=== PATIENT | female | born 1935 | race African-American/Black ===

== ENCOUNTER 2019-06-29 12:41 | Outpatient (CLI) | payer MEDICARE ==
--- NOTE | 2019-06-29 13:27 | Cat Scan Report ---
CT CHEST WITHOUT CONTRAST INDICATION / CLINICAL INFORMATION: J84.9 INTERSTITIAL PULMONARY DISEASE/R06.02 SHORTNESS OF BREATH. TECHNIQUE: Axial CT images were obtained through the chest without contrast. Sagittal and coronal reformatted im ages. All CT scans at this location are performed using CT dose reduction for ALARA by means of autom ated exposure control. COMPARISON: None available. FINDINGS: HEART: Borderline heart size. THORACIC AORTA: The aorta is ectatic with moderate calcific plaques. MEDIASTINUM and GUDELIA: No significant abnormality. LUNGS: Slightly prominent interstitium bilaterally particularly in the upper lobes. It is unclear if this represents chronic interstitial disease or early infiltrates. No evidence for mass or consolidat ion. PLEURA: No significant pleural effusion. No pneumothorax. SKELETAL SYSTEM: Osteopenia. UPPER ABDOMEN: No significant abnormality. ADDITIONAL FINDINGS: None. IMPRESSION: Prominent interstitium primarily in the upper lung zones as described. Borderline cardiomegaly. Ectatic aorta. Signer Name: Geoff Gaytan Jr, MD Signed: 06/29/2019 1:22 PM Workstation Name: [id number]
== END 2019-06-29 12:42 | disposition home or self-care (01) ==
LOC: CT 12:41
PROVIDERS: ATTEND Internal Medicine
DX: I77.819 Aortic ectasia, unspecified site (principal); J84.9 Interstitial pulmonary disease, unspecified; R06.02 Shortness of breath
CPT/HCPCS: 71250

== ENCOUNTER 2021-03-10 01:52 | Emergency (ER) | payer MEDICARE ==
--- NOTE | 2021-03-10 02:07 | Emergency Department Report ---
ED Shortness of Breath HPI - General Chief Complaint: Dyspnea/Respdistress Stated Complaint: CHICO Time Seen by Provider: 03/10/21 01:52 Source: family, EMS Mode of arrival: Stretcher Limitations: Language Barrier, Altered Mental Status, Physical Limitation - History of Present Illness Initial Comments: Patient is an 85-year-old female who presents emergency room for shortness of breath. Patient brought in by EMS. EMS found the patient to be 45% and have been bagging the patient with a BVM patient oxygen saturation increased to 80%. Prior to EMS starting with the BVM, the patient was placed on a nonrebreather and the oxygen saturation did not improve. Patient is minimally responsive. Patient's daughter is at bedside. Patient's daughter states the patient is not vaccinated for COVID-19. Patient's daughter states that the patient's grandson had a sore throat was diagnosed with an upper respiratory infection. The patient has had sore throat and cough for the past 3 days. Patient symptoms became worse tonight. Patient does not have fever. Patient was given Solu-Medrol 125 mg by EMS.. MD Complaint: shortness of breath -: Sudden Severity: severe Context: recent URI Associated Symptoms: cough Treatments Prior to Arrival: oxygen - Related Data Home Medications Medication Instructions Recorded Confirmed Last Taken Cyproheptadine PO TID 03/10/21 Unknown Memantine PO DAILY 03/10/21 Unknown Metoprolol SUCCINATE ER TAB PO DAILY 03/10/21 Unknown Nifedipine ER PO DAILY 03/10/21 Unknown Trazodone HCl PO 03/10/21 Unknown Allergies Allergy/AdvReac Type Severity Reaction Status Date / Time No Known Allergies Allergy Unverified 01/30/14 07:09 ED Review of Systems ROS: Stated complaint: CHICO Other details as noted in HPI Comment: Unobtainable due to pts medical conditions ENT: as per HPI, throat pain Respiratory: see HPI, cough ED Past Medical Hx - Past Medical History Previous Medical History?: Yes Hx Hypertension: Yes Hx GERD: Yes Hx Arthritis: Yes Hx Psychiatric Treatment: Yes Additional medical history: Ulcers - Surgical History Past Surgical History?: No - Family History Family history: no significant - Social History Smoking Status: Never Smoker Substance Use Type: None - Medications Home Medications: Home Medications Medication Instructions Recorded Confirmed Last Taken Type Cyproheptadine PO TID 03/10/21 Unknown History Memantine PO DAILY 03/10/21 Unknown History Metoprolol SUCCINATE ER TAB PO DAILY 03/10/21 Unknown History Nifedipine ER PO DAILY 03/10/21 Unknown History Trazodone HCl PO 03/10/21 Unknown History ED Physical Exam - General Limitations: Altered Mental Status, Physical Limitation General appearance: lethargic, in distress - Head Head exam: Present: atraumatic, normocephalic - Eye Eye exam: Present: normal appearance, PERRL Pupils: Present: normal accommodation - ENT ENT exam: Present: mucous membranes dry - Neck Neck exam: Present: normal inspection - Respiratory Respiratory exam: Present: respiratory distress, decreased breath sounds - Cardiovascular Cardiovascular Exam: Present: regular rate, normal rhythm. Absent: systolic murmur, diastolic murmur, rubs, gallop - GI/Abdominal GI/Abdominal exam: Present: soft, normal bowel sounds - Extremities Exam Extremities exam: Present: normal inspection - Neurological Exam Neurological exam: Present: altered - Skin Skin exam: Present: warm, dry, intact, normal color. Absent: rash ED Course Vital Signs 03/10/21 03/10/21 03/10/21 02:05 02:11 02:24 Pulse Rate 89 80 Respiratory 22 25 H Rate Blood Pressure Blood Pressure 173/157 174/150 [Right] O2 Sat by Pulse 95 Oximetry 03/10/21 03/10/21 03/10/21 03:20 03:44 04:19 Pulse Rate 81 79 Respiratory 22 Rate Blood Pressure 97/24 Blood Pressure 103/33 89/31 [Right] O2 Sat by Pulse 100 95 Oximetry 03/10/21 03/10/21 03/10/21 06:00 06:14 06:30 Pulse Rate 75 82 88 Respiratory 23 22 22 Rate Blood Pressure Blood Pressure 71/27 98/41 97/52 [Right] O2 Sat by Pulse Oximetry 03/10/21 03/10/21 03/10/21 07:01 07:06 07:35 Pulse Rate 70 88 Respiratory 19 Rate Blood Pressure Blood Pressure 79/34 104/44 108/35 [Right] O2 Sat by Pulse Oximetry 03/10/21 03/10/21 03/10/21 08:05 08:16 08:31 Pulse Rate 90 92 H 93 H Respiratory 22 22 22 Rate Blood Pressure 93/59 Blood Pressure [Right] O2 Sat by Pulse 70 L Oximetry 0903/10/21 03/10/21 08:46 09:03 09:05 Pulse Rate 94 H 95 H 70 Respiratory 22 30 H Rate Blood Pressure 109/58 97/40 90/36 Blood Pressure [Right] O2 Sat by Pulse 79 L 93 Oximetry 03/10/21 03/10/21 03/10/21 09:15 09:31 09:45 Pulse Rate 96 H 96 H 95 H Respiratory 30 H 30 H 27 H Rate Blood Pressure 101/47 107/51 87/48 Blood Pressure [Right] O2 Sat by Pulse 95 Oximetry 03/10/21 03/10/21 03/10/21 10:01 10:15 10:31 Pulse Rate 93 H 91 H 88 Respiratory 30 H 30 H 30 H Rate Blood Pressure 92/41 92/52 90/39 Blood Pressure [Right] O2 Sat by Pulse 87 Oximetry 03/10/21 03/10/21 03/10/21 10:45 11:00 11:15 Pulse Rate 83 80 79 Respiratory 30 H 30 H 30 H Rate Blood Pressure 82/45 81/47 81/41 Blood Pressure [Right] O2 Sat by Pulse 83 L 88 Oximetry 03/10/21 03/10/21 03/10/21 11:30 11:45 12:00 Pulse Rate 73 77 78 Respiratory 30 H 30 H 30 H Rate Blood Pressure 95/62 99/61 101/54 Blood Pressure [Right] O2 Sat by Pulse Oximetry 03/10/21 03/10/21 03/10/21 12:04 12:15 12:31 Pulse Rate 78 77 82 Respiratory 30 H 30 H Rate Blood Pressure 56/25 Blood Pressure [Right] O2 Sat by Pulse 94 55 L Oximetry 03/10/21 03/10/21 03/10/21 12:45 13:01 13:15 Pulse Rate 79 84 83 Respiratory 30 H 30 H 30 H Rate Blood Pressure 51/25 49/26 49/27 Blood Pressure [Right] O2 Sat by Pulse Oximetry 03/10/21 03/10/21 03/10/21 13:31 13:46 14:22 Pulse Rate 82 80 74 Respiratory 30 H 20 20 Rate Blood Pressure 49/27 Blood Pressure 49/26 49/24 [Right] O2 Sat by Pulse 23 L Oximetry 03/10/21 16:20 Pulse Rate Respiratory Rate Blood Pressure Blood Pressure [Right] O2 Sat by Pulse 0 L Oximetry - Reevaluation(s) Reevaluation #1: Initial evaluation done. Patient being bagged by EMS. Patient intubated without difficulty. See procedure note. RSI used. 03/10/21 02:07 Reevaluation #2: Patient stable on vent. Patient's vital signs are stable. 03/10/21 02:41 Reevaluation #3: Patient resting comfortably. Patient is on the ventilator. Patient's blood pressure is decreasing. Patient will have fluids started. Patient's heart rate is normal. 03/10/21 03:22 Reevaluation #4: Patient's blood pressure still low. Patient will be given a liter of fluid. 03/10/21 04:29 Reevaluation #5: Patient continues to be hypotensive even with fluids and the patient had a central line placed without difficulty. See procedure note. 03/10/21 05:53 Patient remains hypotensive. Patient placed on dopamine. 03/10/21 06:04 Patient is maxed on Levophed. Patient is on dopamine and the patient's blood pressure is improving. 03/10/21 06:30 - Consultations Consultation #1: Hospitalist consulted for admission. Hospitalist to admit patient. 03/10/21 05:15 Hospitalist updated with changes. 03/10/21 06:30 - Central Line Placement Right Femoral Consent Obtained: emergent situation Time Out Performed: Yes Patient Placed on Monitor/Pulse Ox: Yes Prep: mask, gown, gloves Central Line Prep: Chlorhexidine scrub, sterile drapes applied Ultrasound Used for Placement: Yes Central Line Lumen Inserted: triple Reason for Insertion: Emergency Venous Access Bloods Obtained for Lab: No Central Line Position: good blood return, all ports aspirated, flus, sutured in place with 2-0 Dressing Applied: Tegaderm Patient Tolerated Procedure: well, no complications Complications: none - Intubation Time Out Performed: Yes Sedative: Etomidate Paralytic: Rocuronium Laryngoscope: fiberoptic video scope Size: 4 Assist Device Used: fiberoptic device ET Tube Size: 7.5 Tube Secured Depth (cm): 22 Tube Secured Location: teeth Tube Placement Confirmation: visualized tube passing t, equal breath sounds bilat, no breath sounds over epi, confirmation by capnometr Patient Tolerated Procedure: well, no complications Intubation Complications: none ED Medical Decision Making - Lab Data Result diagrams: 03/10/21 02:40 03/10/21 02:40 - EKG Data -: EKG Interpreted by Me EKG shows normal: sinus rhythm, axis, intervals, QRS complexes, ST-T waves Rate: normal - Radiology Data Radiology results: report reviewed, image reviewed interpreted by me: Chest x-ray: Bilateral pneumonia, no pneumothorax, no osseous findings, ET tube in good placement. CHEST 1 VIEW INDICATION: Dyspnea. COMPARISON: None. FINDINGS: Support devices: Endotracheal tube tip is a few centimeters above the jonathon in satisfactory position. Gastric tube tip is in proximal stomach. Heart: Stable. Lungs/Pleura: There are patchy bilateral airspace opacities. No pneumothorax. There is marked gaseous distention of the stomach. IMPRESSION: 1. Support tubes are in satisfactory position. 2. Patchy bilateral pneumonia. 3. Marked gaseous distention of the stomach. CT BRAIN: 03/10/2021 INDICATION / CLINICAL INFORMATION: Altered Mental Status. COMPARISON: None available. FINDINGS: BRAIN/INTRACRANIAL STRUCTURES: Unenhanced CT images of the brain demonstrate no evidence of acute abnormality. Ventricles and sulci are prominent in size, consistent with age-related atrophic change. Extensive chronic white matter hypoattenuation is present throughout the cerebral hemispheric white matter. There is no CT evidence of acute large vessel territory ischemic injury, hemorrhage, or mass. There are no abnormal extra-axial fluid collections. Atherosclerotic vascular calcifications are present in the distal internal carotid arteries and vertebral arteries. EXTRACRANIAL STRUCTURES: Unremarkable. IMPRESSION: No acute abnormality. Extensive chronic and age-related changes. - Medical Decision Making Patient is a 85-year-old female presents emergency room for difficulty breathing. Patient will be severely hypoxic. Patient is being bagged with BVM by EMS on initial evaluation. Patient immediately intubated. Patient had a chest x-ray which shows bilateral pneumonia concerning for COVID-19. I personally reviewed the chest x-ray. Patient is given Solu-Medrol by EMS and the patient was given Rocephin and Zithromax after chest x-ray was done. Patient given IV fluids for hypotension. Patient's blood pressure improved slightly with fluids but once the fluids were done, the patient's blood pressure returned to low. Patient was then placed on Levophed. Patient had a central line placed. Patient had a blood gas done which showed metabolic acidosis. Patient had labs done and labs were significant for anemia, renal failure, acidosis, elevated inflammatory markers. Patient given bicarb. Patient admitted to the hospital service for further evaluation and treatment. Patient remained hypotensive even after fluids and the patient was placed on Levophed. Patient had a central line placed. Patient had a head CT and was negative for acute findings. Head CT was ordered for the altered mental status. Critical care time documented due to the multiple reassessments, prolonged time at the bedside, interpretation of diagnostics and labs. - Differential Diagnosis Obese, PUI, SOB, hypoxia, pneumonia, Critical Care Time: Yes Critical care time in (mins) excluding proc time.: 80 Critical care attestation.: If time is entered above; I have spent that time in minutes in the direct care of this critically ill patient, excluding procedure time. Critical Care Time: 80 minutes ED Disposition Clinical Impression: Shortness of breath, Person under investigation for COVID-19, Lactic acidosis, Metabolic acidosis Respiratory failure Qualifiers: Chronicity: acute Respiratory failure complication: hypoxia Qualified Code(s): J96.01 - Acute respiratory failure with hypoxia Pneumonia Qualifiers: Pneumonia type: due to unspecified organism Laterality: bilateral Lung location: unspecified part of lung Qualified Code(s): J18.9 - Pneumonia, unspecified organism Renal failure Qualifiers: Renal failure chronicity: acute Acute renal failure type: unspecified Qualified Code(s): N17.9 - Acute kidney failure, unspecified Anemia Qualifiers: Anemia type: unspecified type Qualified Code(s): D64.9 - Anemia, unspecified Sepsis Qualifiers: Sepsis type: sepsis due to unspecified organism Sepsis acute organ dysfunction status: with acute organ dysfunction Severe sepsis acute organ dysfunction type: acute respiratory failure Acute respiratory failure type: with hypoxia Severe sepsis shock status: with septic shock Qualified Code(s): A41.9 - Sepsis, unspecified organism; R65.21 - Severe sepsis with septic shock; J96.01 - Acute respiratory failure with hypoxia Hypotension Qualifiers: Hypotension type: unspecified hypotension type Qualified Code(s): I95.9 - Hypotension, unspecified Altered mental status Qualifiers: Altered mental status type: unspecified Qualified Code(s): R41.82 - Altered mental status, unspecified Disposition: 09 ADMITTED INPATIENT Is pt being admited?: Yes Does the pt Need Aspirin: No Condition: Critical Instructions: Bacterial Pneumonia (ED) Time of Disposition: 05:54
[2021-03-10] MEDS ORDERED: LIP THERAPY VASELINE TP PRN (02:10)
[2021-03-10] MEDS ORDERED: MINERAL OIL/PETROLATUM, WHITE OPHTH OINT 3.5 GM OU PRN (02:10)
[2021-03-10] MEDS ORDERED: cefTRIAXone/NS 2 GM/100 ML 2 GM/100 ML BAG IV ONE (02:13)
[2021-03-10] MEDS ORDERED: AZITHROMYCIN/NS 500 MG/250 ML 500 MG/250 ML BAG IV SCH (03:00)
--- NOTE | 2021-03-10 03:06 | XRay Report ---
CHEST 1 VIEW INDICATION: Dyspnea. COMPARISON: None. FINDINGS: Support devices: Endotracheal tube tip is a few centimeters above the jonathon in satisfactory position . Gastric tube tip is in proximal stomach. Heart: Stable. Lungs/Pleura: There are patchy bilateral airspace opacities. No pneumothorax. There is marked gaseous distention of the stomach. IMPRESSION: 1. Support tubes are in satisfactory position. 2. Patchy bilateral pneumonia. 3. Marked gaseous distention of the stomach. Signer Name: Dwight Alford MD Signed: 03/10/2021 3:01 AM Workstation Name: [id number]
[2021-03-10] MEDS ORDERED: SODIUM CHLORIDE 0.9% 1000 ML 1,000 ML ONE (03:16)
[2021-03-10 03:30] LABS: Hematocrit 29.9 % (30.3-42.9); Hemoglobin 9.7 gm/dl (10.1-14.3); Mean Corpuscular HGB Conc 33 % (30-34); Mean Corpuscular Volume 78 fl (79-97); Platelet Count 261 K/mm3 (140-440); Red Blood Count 3.84 M/mm3 (3.65-5.03); Red Cell Distribution Width 17.8 % (13.2-15.2)
[2021-03-10] MEDS ORDERED: SODIUM CHLORIDE 0.9% 1000 ML IV SOLN IV ONE (03:40)
[2021-03-10] MEDS ORDERED: fentaNYL 100 MCG/2 ML INJ IV PRN (03:41)
[2021-03-10 03:44] LABS: INR 0.92 (0.87-1.13); Partial Thromboplastin Time 33.9 Sec. (24.2-36.6)
[2021-03-10] MEDS ORDERED: fentaNYL DRIP Premix 2,000 MCG/100 ML BAG IV SCH (04:00)
[2021-03-10 04:03] LABS: Creatine Kinase MB 2.6 ng/mL (0.0-4.0)
[2021-03-10 04:04] LABS: Alanine Aminotransferase 9 units/L (7-56); Albumin 3.1 g/dL (3.9-5); BUN/Creatinine Ratio 19; Blood Urea Nitrogen 37 mg/dL (7-17); Calcium 8.6 mg/dL (8.4-10.2); Hemolysis Index 1
[2021-03-10 04:06] LABS: Total Cells Counted 100
[2021-03-10 04:07] LABS: Band Neutrophils # (Manual) 0.1 K/mm3
[2021-03-10 04:08] LABS: Anisocytosis 1+; Hypochromasia 1+; Ovalocytes 1+; Platelet Estimate Consistent w Auto; Poikilocytosis 1+
[2021-03-10] MEDS ORDERED: SODIUM CHLORIDE 0.9% 1000 ML 1,000 ML IV ONE (04:25)
[2021-03-10] MEDS ORDERED: SODIUM BICARB 8.4% 50 MEQ/50 ML SYRINGE IV ONE ×2 (05:15)
[2021-03-10] MEDS ORDERED: NORepinephrine/NS 4 MG-250 ML 4 MG/250 ML BAG IV SCH (06:00)
[2021-03-10] MEDS ORDERED: DOPamine/D5W 800 MG/250 ML 800 MG/250 ML BAG IV ONE (06:01)
[2021-03-10] MEDS ORDERED: ACETAMINOPHEN 650 MG RECT SUPP PR PRN (06:12)
[2021-03-10] MEDS ORDERED: ONDANSETRON 4 MG/2 ML INJ IV PRN (06:12)
[2021-03-10] MEDS ORDERED: MORPHINE 4 MG/1 ML INJ IV PRN (06:12)
[2021-03-10] MEDS ORDERED: MORPHINE 2 MG/1 ML INJ IV PRN (06:12)
[2021-03-10] MEDS ORDERED: SODIUM CHLORIDE 0.9% 1000 ML 1,000 ML IV SCH (06:15)
--- NOTE | 2021-03-10 06:31 | History and Physical Report ---
History of Present Illness Date of examination: 03/10/21 Date of admission: 03/10/2021 Chief complaint: Shortness of Breath History of present illness: 85-year-old female brought into the emergency room by EMS today in respiratory distress. Oxygen saturation was about 45% on room air upon arrival of EMS. With BVM-(Bag valve mask) oxygen saturation improved to about 80%. Upon arrival in the emergency room patient was minimally responsive and information gotten from daughter was by the bedside indicates that patient's grandson had a sore throat and was diagnosed with upper respiratory infection recently. Patient has not been fully vaccinated against COVID-19. She has been having cough and sore throat over the past 3 days. Symptoms got got worse in the last 24 hours. In route to the hospital patient was given Solu-Medrol 125 mg by EMS. Upon arrival in the emergency room patient was subsequently intubated. She became hypotensive while in the emergency room and subsequently started on pressors. Most of the information was gotten from the ER staff as patient is already intubated. Work-up in the emergency room today, labs indicates lactic acidosis of 9.0, BUN and creatinine of 37 and 2.0. Chest x-ray reveals patchy bilateral pneumonia. Past History Past Medical History: arthritis, GERD, hypertension Past Surgical History: No surgical history Social history: no significant social history Family history: no significant family history Medications and Allergies Allergies Allergy/AdvReac Type Severity Reaction Status Date / Time No Known Allergies Allergy Unverified 01/30/14 07:09 Home Medications Medication Instructions Recorded Confirmed Last Taken Type Ergocalciferol [Vitamin D2] 50,000 unit PO QWEEK 01/30/14 01/30/14 Unknown History Indomethacin Sr (Nf) [Indocin Sr] 75 mg PO ONCE 01/30/14 01/30/14 Unknown History QUEtiapine [SEROquel] 25 mg PO BID 01/30/14 01/30/14 Unknown History amLODIPine [Norvasc] 10 mg PO DAILY 01/30/14 01/30/14 Unknown History raNITIdine HCL [Ranitidine] 300 mg PO QPM 01/30/14 01/30/14 Unknown History Active Meds: Active Medications Acetaminophen (Acetaminophen 650 Mg Rect Supp) 650 mg ID Q6H PRN PRN Reason: Pain MILD(1-3)/Fever >100.5/PRAKASH Dexamethasone (Dexamethasone 4 Mg/Ml Vial) 6 mg IV Q24HR NAUN Fentanyl (Fentanyl 100 Mcg/2 Ml Inj) 50 mcg IV Q10MIN PRN PRN Reason: ANALGESIA Heparin Sodium (Porcine) (Heparin 5,000 Unit/1 Ml Vial) 5,000 unit SUB-Q Q8HR NAUN Hydrophilic Ointment (Lip Therapy Vaseline) 1 applic TP Q2HR PRN PRN Reason: Dry Lips Azithromycin (Zithromax/Ns) 500 mg in 250 mls @ 250 mls/hr IV Q24HR NAUN Last Admin: 03/10/21 04:40 Dose: 250 mls/hr Documented by: Fentanyl Citrate (Fentanyl Drip Premix) 2,000 mcg in 100 mls @ 2.5 mls/hr IV TITR NAUN; Protocol Norepinephrine (Levophed Drip 4 Mg/Ns 250 Ml) 4 mg in 250 mls @ 7.5 mls/hr IV TITR NAUN; Protocol Dopamine HCl/Dextrose (Intropin Drip 800 Mg/D5w 250 Ml) 800 mg in 250 mls @ 1.875 mls/hr IV TITR ONE; Protocol Stop: 03/15/21 19:20 Last Admin: 03/10/21 06:07 Dose: 2 mcg/kg/min, 1.875 mls/hr Documented by: Sodium Chloride (Nacl 0.9% 1000 Ml) 1,000 mls @ 125 mls/hr IV DIRECT NAUN Ceftriaxone Sodium (Rocephin/Ns 2 Gm/100 Ml) 2 gm in 100 mls @ 200 mls/hr IV Q24H NAUN; Protocol Morphine Sulfate (Morphine 2 Mg/1 Ml Inj) 2 mg IV Q4H PRN PRN Reason: Pain, Moderate (4-6) Morphine Sulfate (Morphine 4 Mg/1 Ml Inj) 4 mg IV Q4H PRN PRN Reason: Pain , Severe (7-10) Multi-Ingred Cream/Lotion/Oil/Oint (Mineral Oil/Petrolatum, White Ophth Oint 3.5 Gm) 1 applic OU Q4HR PRN PRN Reason: Dry Eye(s) Ondansetron HCl (Ondansetron 4 Mg/2 Ml Inj) 4 mg IV Q8H PRN PRN Reason: Nausea And Vomiting Sodium Chloride (Sodium Chloride 0.9% 10 Ml Flush Syringe) 10 ml IV BID [facility] Sodium Chloride (Sodium Chloride 0.9% 10 Ml Flush Syringe) 10 ml IV PRN PRN PRN Reason: LINE FLUSH Review of Systems ROS unobtainable: due to endotracheal tube Exam - Constitutional Vitals: Temp Pulse Resp BP Pulse Ox 79 22 89/31 95 03/10/21 04:19 03/10/21 04:19 03/10/21 04:19 03/10/21 04:19 General appearance: Present: mild distress, well-nourished - EENT Eyes: Present: PERRL, EOM intact. Absent: scleral icterus ENT: hearing intact, clear oral mucosa, dentition normal - Neck Neck: Present: supple, normal ROM - Respiratory Respiratory effort: normal Respiratory: bilateral: diminished - Cardiovascular Rhythm: regular Heart Sounds: Present: S1 & S2. Absent: gallop, systolic murmur, diastolic murm ur, rub, click - Extremities Extremities: no ischemia, pulses intact, pulses symmetrical, No edema, normal temperature, normal color, Full ROM Peripheral Pulses: within normal limits - Abdominal General gastrointestinal: Present: soft, non-tender, non-distended, normal bowel sounds. Absent: mass - Integumentary Integumentary: Present: clear, warm, dry, normal turgor. Absent: rash - Musculoskeletal Musculoskeletal: other (Intubated ) - Psychiatric Psychiatric: cooperative, other - Neurologic Neurologic: CNII-XII intact, other (Intubated and sedated.) HEART Score - HEART Score Troponin: Troponin T < 0.010 ng/mL (0.00-0.029) 03/10/21 02:40 Results - Labs CBC & Chem 7: 03/10/21 02:40 03/10/21 02:40 Labs: Abnormal lab results 03/10/21 03/10/21 03/10/21 Range/Units 02:40 02:40 02:40 Hgb 9.7 L (10.1-14.3) gm/dl Hct 29.9 L (30.3-42.9) % MCV 78 L (79-97) fl MCH 25 L (28-32) pg RDW 17.8 H (13.2-15.2) % Seg Neuts % (Manual) 95.0 H (40.0-70.0) % Lymphocytes % (Manual) 1.0 L (13.4-35.0) % Nucleated RBC % 1.0 H (0.0-0.9) % Seg Neutrophils # Man 10.0 H (1.8-7.7) K/mm3 Lymphocytes # (Manual) 0.1 L (1.2-5.4) K/mm3 D-Dimer 1715.61 H (0-234) ng/mlDDU ABG pH (7.320-7.450) POC ABG pCO2 (32.0-48.0) mmHg POC ABG pO2 (83-108) mmHg ABG Hemoglobin (12.0-17.5) ABG Oxyhemoglobin (94-98) ABG Sodium (136.0-145.0) mmol/L ABG Chloride (98-107) mmol/L ABG Glucose (65-95) mg/dL Carbon Dioxide 11 L (22-30) mmol/L BUN 37 H (7-17) mg/dL Creatinine 2.0 H (0.6-1.2) mg/dL Glucose 151 H (65-100) mg/dL Lactic Acid (0.7-2.0) mmol/L Ferritin (10.0-200.0) ng/mL AST 46 H (5-40) units/L Albumin 3.1 L (3.9-5) g/dL Arterial Blood Glucose (65-95) mg/dL Arterial Blood Ionized Calcium (4.6-5.3) mg/dL 03/10/21 03/10/21 03/10/21 Range/Units 02:40 02:40 04:24 Hgb (10.1-14.3) gm/dl Hct (30.3-42.9) % MCV (79-97) fl MCH (28-32) pg RDW (13.2-15.2) % Seg Neuts % (Manual) (40.0-70.0) % Lymphocytes % (Manual) (13.4-35.0) % Nucleated RBC % (0.0-0.9) % Seg Neutrophils # Man (1.8-7.7) K/mm3 Lymphocytes # (Manual) (1.2-5.4) K/mm3 D-Dimer (0-234) ng/mlDDU ABG pH 7.258 L (7.320-7.450) POC ABG pCO2 17.8 L (32.0-48.0) mmHg POC ABG pO2 377.6 H (83-108) mmHg ABG Hemoglobin 8.2 L (12.0-17.5) ABG Oxyhemoglobin 98.8 H (94-98) ABG Sodium 134.5 L (136.0-145.0) mmol/L ABG Chloride 114.0 H (98-107) mmol/L ABG Glucose 174 H (65-95) mg/dL Carbon Dioxide (22-30) mmol/L BUN (7-17) mg/dL Creatinine (0.6-1.2) mg/dL Glucose (65-100) mg/dL Lactic Acid 9.80 H* (0.7-2.0) mmol/L Ferritin 215.5 H (10.0-200.0) ng/mL AST (5-40) units/L Albumin (3.9-5) g/dL Arterial Blood Glucose 174 H (65-95) mg/dL Arterial Blood Ionized Calcium 4.0 L (4.6-5.3) mg/dL Assessment and Plan - Patient Problems (1) Pneumonia Current Visit: Yes Status: Acute Qualifiers: Pneumonia type: due to unspecified organism Laterality: bilateral Lung location: unspecified part of lung Qualified Code(s): J18.9 - Pneumonia, unspecified organism Plan to address problem: Patient commenced on empiric IV antibiotics. She will also be ruled out for COVID-19. (2) Respiratory failure Current Visit: Yes Status: Acute Qualifiers: Chronicity: acute Respiratory failure complication: hypoxia Qualified Code(s): J96.01 - Acute respiratory failure with hypoxia Plan to address problem: Possibly secondary to the underlying pneumonia. Patient currently intubated and sedated. Awaits further evaluation by floor grinder. (3) Person under investigation for COVID-19 Current Visit: Yes Status: Acute Plan to address problem: We will await COVID-19 testing. Consult placed to infectious disease for evaluation and recommendation. (4) Renal failure Current Visit: Yes Status: Acute Qualifiers: Renal failure chronicity: acute Acute renal failure type: unspecified Qualified Code(s): N17.9 - Acute kidney failure, unspecified Plan to address problem: Possibly prerenal. Patient placed on IV fluid and will monitor BUN and creatinine. We will appreciate nephrology input (5) Sepsis Current Visit: Yes Status: Acute Qualifiers: Sepsis type: sepsis due to unspecified organism Sepsis acute organ dy sfunction status: with acute organ dysfunction Severe sepsis acute organ dysfunction type: acute respiratory failure Acute respiratory failure type: with hypoxia Severe sepsis shock status: with septic shock Qualified Code(s): A41.9 - Sepsis, unspecified organism; R65.21 - Severe sepsis with septic shock; J96.01 - Acute respiratory failure with hypoxia Plan to address problem: Secondary to the underlying pneumonia. We will continue IV fluid, empiric IV antibiotics. Will await culture results. We will monitor labs. (6) Anemia Current Visit: Yes Status: Acute Qualifiers: Anemia type: unspecified type Qualified Code(s): D64.9 - Anemia, unspecified Plan to address problem: We will monitor CBC. (7) Metabolic acidosis Current Visit: Yes Status: Acute Plan to address problem: Patient has had IV sodium bicarb in the ER We will continue on IV fluid and monitor chemistry. (8) DVT prophylaxis Current Visit: No Status: Acute Plan to address problem: Patient placed on subcutaneous heparin. (9) Full code status Current Visit: No Status: Acute Plan to address problem: Patient is full code.
[2021-03-10] MEDS ORDERED: VASOPRESSIN 20 UNIT in SODIUM CHLORIDE 0.9% 100 ML IV SCH (08:00)
[2021-03-10] MEDS ORDERED: SODIUM BICARBONATE 150 MEQ in DEXTROSE 5% IN WATER 1,000 ML IV SCH (08:00)
--- NOTE | 2021-03-10 08:56 | Consultation ---
History of Present Illness - History of Present Illness Thank you for the consultation Patient was evaluated today My assessment and plan are as follows Acute renal failure most likely resulting from severe respiratory failure, with a severe lactic acidosis, patient is 85-year-old and has very limited prognosis, and high mortality risk in general Patient's renal prognosis also appears to be very poor will order workup for renal failure #Severe lactic acidosis resulting from respiratory failure needs optimization needs follow-up on serial lactic acid level, arterial blood gases, bicarb Needs follow-up on basic metabolic profile #Respiratory failure, currently intubated Need to rule out for any possibility of Covid 19 infection Patient is behaving like Covid infection #Due to age and multiple comorbidities her prognosis in general is very poor mortality risk is very high, Will order workup for renal failure including renal imaging, Dialysis alone is not going to change the outcome will monitor Patients next of kin is Grandchild telephone number [phone] Daughter [phone] #I did reach out to the grandchild and discussed with him at length, made him aware that patient's prognosis is very poor, mortality risk is very high Continue with supportive care for now Author: Matt Alexander M.D. [facility], [address] [place] [address] Tel; [phone] Source of information: From the current chart Patient with respiratory failure unable to provide history History of present illness 85-year-old female who has been brought in here with respiratory distress with respiratory failure pulse ox was 45% on room air, she has not been fully vaccinated for Covid 19 and was having upper respiratory symptoms which was worsening, in the ER she was noted to have severe lactic acidosis and a creatinine of 2.0 chest x-ray showed evidence of bilateral pneumonia Patient is bicarbonate was only 11 today Events of this hospitalization were noted Past medical history: Arthritis Gastroesophageal reflux disorder Hypertension History of nonsteroidal medication use Current allergies: Reviewed from the current chart Social history: Reviewed from the current chart Family history: Reviewed from the current chart Review of system: Unable to obtain due to respiratory failure Physical examination Vitals: Reviewed General: No acute distress HEENT: Oral mucosa moist no pallor or icterus Neck: Supple without any JVD thyromegaly or nodular mass Chest: Bilateral coarse crackles Heart: Regular rate and rhythm S1-S2 heard no S3-S4 Abdomen: Soft nontender, bowel sounds present no renal bruit no suprapubic masses no CVA tenderness noted Extremity: Minimal edema dry skin no peripheral cyanosis Endocrine: Thyroid not enlarged Psychiatric: No agitation and aggression noted Musculoskeletal: No joint effusion noted Labs and x-rays: Reviewed from this admission Past History Past Medical History: arthritis, GERD, hypertension Past Surgical History: No surgical history Social history: no significant social history Family history: no significant family history Medications and Allergies Allergies Allergy/AdvReac Type Severity Reaction Status Date / Time No Known Allergies Allergy Unverified 01/30/14 07:09 Home Medications Medication Instructions Recorded Confirmed Last Taken Type Cyproheptadine PO TID 03/10/21 Unknown History Memantine PO DAILY 03/10/21 Unknown History Metoprolol SUCCINATE ER TAB PO DAILY 03/10/21 Unknown History Nifedipine ER PO DAILY 03/10/21 Unknown History Trazodone HCl PO 03/10/21 Unknown History Active Meds: Active Medications Acetaminophen (Acetaminophen 650 Mg Rect Supp) 650 mg [place] Q6H PRN PRN Reason: Pain MILD(1-3)/Fever >100.5/PRAKASH Dexamethasone (Dexamethasone 4 Mg/Ml Vial) 6 mg IV Q24HR NAUN Fentanyl (Fentanyl 100 Mcg/2 Ml Inj) 50 mcg IV Q10MIN PRN PRN Reason: ANALGESIA Heparin Sodium (Porcine) (Heparin 5,000 Unit/1 Ml Vial) 5,000 unit SUB-Q Q8HR NAUN Hydrophilic Ointment (Lip Therapy Vaseline) 1 applic TP Q2HR PRN PRN Reason: Dry Lips Azithromycin (Zithromax/Ns) 500 mg in 250 mls @ 250 mls/hr IV Q24HR NAUN Last Admin: 03/10/21 04:40 Dose: 250 mls/hr Documented by: Fentanyl Citrate (Fentanyl Drip Premix) 2,000 mcg in 100 mls @ 2.5 mls/hr IV TITR NAUN; Protocol Norepinephrine (Levophed Drip 4 Mg/Ns 250 Ml) 4 mg in 250 mls @ 7.5 mls/hr IV TITR NAUN; Protocol Dopamine HCl/Dextrose (Intropin Drip 800 Mg/D5w 250 Ml) 800 mg in 250 mls @ 1.875 mls/hr IV TITR ONE; Protocol Stop: 03/15/21 19:20 Last Admin: 03/10/21 06:07 Dose: 2 mcg/kg/min, 1.875 mls/hr Documented by: Sodium Chloride (Nacl 0.9% 1000 Ml) 1,000 mls @ 125 mls/hr IV DIRECT NAUN Ceftriaxone Sodium (Rocephin/Ns 2 Gm/100 Ml) 2 gm in 100 mls @ 200 mls/hr IV Q24H NAUN; Protocol Vasopressin 20 unit/ Sodium (Chloride) 101 mls @ 9.09 mls/hr IV TITR NAUN; Protocol Last Admin: 03/10/21 08:26 Dose: 0.03 units/min, 9.09 mls/hr Documented by: Sodium Bicarbonate 150 meq/ (Dextrose) 1,150 mls @ 100 mls/hr IV DIRECT NAUN Stop: 03/11/21 19:29 Morphine Sulfate (Morphine 2 Mg/1 Ml Inj) 2 mg IV Q4H PRN PRN Reason: Pain, Moderate (4-6) Morphine Sulfate (Morphine 4 Mg/1 Ml Inj) 4 mg IV Q4H PRN PRN Reason: Pain , Severe (7-10) Multi-Ingred Cream/Lotion/Oil/Oint (Mineral Oil/Petrolatum, White Ophth Oint 3.5 Gm) 1 applic OU Q4HR PRN PRN Reason: Dry Eye(s) Ondansetron HCl (Ondansetron 4 Mg/2 Ml Inj) 4 mg IV Q8H PRN PRN Reason: Nausea And Vomiting Sodium Chloride (Sodium Chloride 0.9% 10 Ml Flush Syringe) 10 ml IV BID NAUN Sodium Chloride (Sodium Chloride 0.9% 10 Ml Flush Syringe) 10 ml IV PRN PRN PRN Reason: LINE FLUSH Exam - Vital Signs Vital signs: Vital Signs Resp Pulse Ox 22 95 03/10/21 02:05 03/10/21 02:05 Results - Lab Results 03/10/21 02:40 03/10/21 02:40 Most recent lab results ABG pH 7.258 (7.320-7.450) L 03/10/21 04:24 ABG O2 Saturation 99.6 (0-100) 03/10/21 04:24 Calcium 8.6 mg/dL (8.4-10.2) 03/10/21 02:40
--- NOTE | 2021-03-10 09:13 | Cat Scan Report ---
CT BRAIN: 03/10/2021 INDICATION / CLINICAL INFORMATION: Altered Mental Status. COMPARISON: None available. FINDINGS: BRAIN/INTRACRANIAL STRUCTURES: Unenhanced CT images of the brain demonstrate no evidence of acute abn ormality. Ventricles and sulci are prominent in size, consistent with age-related atrophic change. Extensive chronic white matter hypoattenuation is present throughout the cerebral hemispheric white m atter. There is no CT evidence of acute large vessel territory ischemic injury, hemorrhage, or mass. There a re no abnormal extra-axial fluid collections. Atherosclerotic vascular calcifications are present in the distal internal carotid arteries and verte bral arteries. EXTRACRANIAL STRUCTURES: Unremarkable. IMPRESSION: No acute abnormality. Extensive chronic and age-related changes. All CT scans at this location are performed using dose reduction to ALARA by means of automated expos ure control. Signer Name: Tien Keith MD Signed: 03/10/2021 9:09 AM Workstation Name: [id number]
--- NOTE | 2021-03-10 09:41 | Event Note ---
Date: 03/10/21 Patient seen and examined, remains on full ventilatory support. Noted with severe hypoglycemia, d50 ordered and d10 drip. Patient also on Bicarb drip due to severe metabolic Acidosis. very guarded prognosis. Discussed with pulmonary team.
[2021-03-10 09:48] LABS: Uric Acid 7.5 mg/dL (3.5-7.6)
[2021-03-10] MEDS ORDERED: cefTRIAXone/NS 2 GM/100 ML 2 GM/100 ML BAG IV SCH (10:00)
[2021-03-10] MEDS ORDERED: dexAMETHasone 4 MG/ML VIAL IV SCH (10:00)
--- NOTE | 2021-03-10 10:23 | Ultrasound Report ---
ULTRASOUND RENAL INDICATION / CLINICAL INFORMATION: renal failure. COMPARISON: None available. FINDINGS: RIGHT KIDNEY: Length = 9.0 cm. - Echogenicity: Normal. - Cortical Thickness: Normal. - Hydronephrosis: None. - Cyst / Mass: None. - Stones: None seen. LEFT KIDNEY: Length = 6.1 cm. - Echogenicity: Normal. - Cortical Thickness: Decreased. - Hydronephrosis: None. - Cyst / Mass: None. - Stones: None seen. URINARY BLADDER: No significant abnormality. FREE FLUID: None. ADDITIONAL FINDINGS: None. IMPRESSION: 1. The right kidney appears normal without hydronephrosis. 2. The left kidney is atrophic compared to the right. No hydronephrosis. Signer Name: Ravi Alvarado MD Signed: 03/10/2021 10:18 AM Workstation Name: [id number]
[2021-03-10] MEDS ORDERED: DEXTROSE 50% IN WATER (25GM) 50 ML SYRINGE IV PRN (11:09)
[2021-03-10] MEDS ORDERED: DEXTROSE 10% IN WATER 1,000 ML IV SCH (12:00)
--- NOTE | 2021-03-10 12:17 | Consultation ---
History of Present Illness Consult date: 03/10/21 Requesting physician: LITZY WEAVER Reason for consult: pneumonia, other (Acute Hypoxemic Respiratory Failure) History of present illness: PCCM CONSULT NOTE (Full dictation # [id number]) Please see dictated notes for full details Past History Past Medical History: arthritis, GERD, hypertension Past Surgical History: No surgical history Social history: no significant social history Family history: no significant family history Medications and Allergies Allergies Allergy/AdvReac Type Severity Reaction Status Date / Time No Known Allergies Allergy Unverified 01/30/14 07:09 Home Medications Medication Instructions Recorded Confirmed Last Taken Type Cyproheptadine PO TID 03/10/21 Unknown History Memantine PO DAILY 03/10/21 Unknown History Metoprolol SUCCINATE ER TAB PO DAILY 03/10/21 Unknown History Nifedipine ER PO DAILY 03/10/21 Unknown History Trazodone HCl PO 03/10/21 Unknown History Active Meds: Active Medications Acetaminophen (Acetaminophen 650 Mg Rect Supp) 650 mg MI Q6H PRN PRN Reason: Pain MILD(1-3)/Fever >100.5/PRAKASH Dexamethasone (Dexamethasone 4 Mg/Ml Vial) 6 mg IV Q24HR NAUN Last Admin: 03/10/21 11:33 Dose: 6 mg Documented by: Dextrose (Dextrose 50% In Water (25gm) 50 Ml Syringe) 50 ml IV Q30MIN PRN; Protocol PRN Reason: Hypoglycemia Last Admin: 03/10/21 11:22 Dose: 50 ml Documented by: Fentanyl (Fentanyl 100 Mcg/2 Ml Inj) 50 mcg IV Q10MIN PRN PRN Reason: ANALGESIA Heparin Sodium (Porcine) (Heparin 5,000 Unit/1 Ml Vial) 5,000 unit SUB-Q Q8HR NAUN Hydrophilic Ointment (Lip Therapy Vaseline) 1 applic TP Q2HR PRN PRN Reason: Dry Lips Azithromycin (Zithromax/Ns) 500 mg in 250 mls @ 250 mls/hr IV Q24HR NAUN Last Admin: 03/10/21 04:40 Dose: 250 mls/hr Documented by: Fentanyl Citrate (Fentanyl Drip Premix) 2,000 mcg in 100 mls @ 2.5 mls/hr IV TITR NAUN; Protocol Norepinephrine (Levophed Drip 4 Mg/Ns 250 Ml) 4 mg in 250 mls @ 7.5 mls/hr IV TITR NAUN; Protocol Dopamine HCl/Dextrose (Intropin Drip 800 Mg/D5w 250 Ml) 800 mg in 250 mls @ 1.875 mls/hr IV TITR ONE; Protocol Stop: 03/15/21 19:20 Last Admin: 03/10/21 06:07 Dose: 2 mcg/kg/min, 1.875 mls/hr Documented by: Sodium Chloride (Nacl 0.9% 1000 Ml) 1,000 mls @ 125 mls/hr IV DIRECT NAUN Ceftriaxone Sodium (Rocephin/Ns 2 Gm/100 Ml) 2 gm in 100 mls @ 200 mls/hr IV Q24H NAUN; Protocol Vasopressin 20 unit/ Sodium (Chloride) 101 mls @ 9.09 mls/hr IV TITR NAUN; Protocol Last Admin: 03/10/21 08:26 Dose: 0.03 units/min, 9.09 mls/hr Documented by: Sodium Bicarbonate 150 meq/ (Dextrose) 1,150 mls @ 100 mls/hr IV DIRECT NAUN Stop: 03/11/21 19:29 Dextrose (D10w) 1,000 mls @ 42 mls/hr IV DIRECT NAUN Morphine Sulfate (Morphine 2 Mg/1 Ml Inj) 2 mg IV Q4H PRN PRN Reason: Pain, Moderate (4-6) Morphine Sulfate (Morphine 4 Mg/1 Ml Inj) 4 mg IV Q4H PRN PRN Reason: Pain , Severe (7-10) Multi-Ingred Cream/Lotion/Oil/Oint (Mineral Oil/Petrolatum, White Ophth Oint 3.5 Gm) 1 applic OU Q4HR PRN PRN Reason: Dry Eye(s) Ondansetron HCl (Ondansetron 4 Mg/2 Ml Inj) 4 mg IV Q8H PRN PRN Reason: Nausea And Vomiting Sodium Chloride (Sodium Chloride 0.9% 10 Ml Flush Syringe) 10 ml IV BID NAUN Sodium Chloride (Sodium Chloride 0.9% 10 Ml Flush Syringe) 10 ml IV PRN PRN PRN Reason: LINE FLUSH Physical Examination Vital signs: Vital Signs Resp Pulse Ox 22 95 03/10/21 02:05 03/10/21 02:05 Results - Laboratory Findings CBC and BMP: 03/10/21 02:40 03/10/21 02:40 ABG ABG pH 7.258 (7.320-7.450) L 03/10/21 04:24 POC ABG pCO2 17.8 mmHg (32.0-48.0) L 03/10/21 04:24 POC ABG pO2 377.6 mmHg (83-108) H 03/10/21 04:24 POC ABG HCO3 7.8 03/10/21 04:24 ABG O2 Saturation 99.6 (0-100) 03/10/21 04:24 PT/INR, D-dimer PT 12.9 Sec. (12.2-14.9) 03/10/21 02:40 INR 0.92 (0.87-1.13) 03/10/21 02:40 D-Dimer 1715.61 ng/mlDDU (0-234) H 03/10/21 02:40 Abnormal lab findings: Abnormal Labs 03/10/21 03/10/21 03/10/21 02:40 02:40 02:40 Hgb 9.7 L Hct 29.9 L MCV 78 L MCH 25 L RDW 17.8 H Seg Neuts % (Manual) 95.0 H Lymphocytes % (Manual) 1.0 L Nucleated RBC % 1.0 H Seg Neutrophils # Man 10.0 H Lymphocytes # (Manual) 0.1 L D-Dimer 1715.61 H ABG pH POC ABG pCO2 POC ABG pO2 ABG Hemoglobin ABG Oxyhemoglobin ABG Sodium ABG Chloride ABG Glucose Carbon Dioxide 11 L BUN 37 H Creatinine 2.0 H Glucose 151 H POC Glucose Lactic Acid Ferritin AST 46 H Lactate Dehydrogenase 358 H Total Creatine Kinase C-Reactive Protein 16.60 H Albumin 3.1 L Arterial Blood Glucose Arterial Blood Ionized Calcium 03/10/21 03/10/21 03/10/21 02:40 02:40 04:24 Hgb Hct MCV MCH RDW Seg Neuts % (Manual) Lymphocytes % (Manual) Nucleated RBC % Seg Neutrophils # Man Lymphocytes # (Manual) D-Dimer ABG pH 7.258 L POC ABG pCO2 17.8 L POC ABG pO2 377.6 H ABG Hemoglobin 8.2 L ABG Oxyhemoglobin 98.8 H ABG Sodium 134.5 L ABG Chloride 114.0 H ABG Glucose 174 H Carbon Dioxide BUN Creatinine Glucose POC Glucose Lactic Acid 9.80 H* Ferritin 215.5 H AST Lactate Dehydrogenase Total Creatine Kinase C-Reactive Protein Albumin Arterial Blood Glucose 174 H Arterial Blood Ionized Calcium 4.0 L 03/10/21 03/10/21 03/10/21 05:52 07:08 09:18 Hgb Hct MCV MCH RDW Seg Neuts % (Manual) Lymphocytes % (Manual) Nucleated RBC % Seg Neutrophils # Man Lymphocytes # (Manual) D-Dimer ABG pH POC ABG pCO2 POC ABG pO2 ABG Hemoglobin ABG Oxyhemoglobin ABG Sodium ABG Chloride ABG Glucose Carbon Dioxide BUN Creatinine Glucose POC Glucose Lactic Acid 9.20 H* 10.60 H* 13.90 H* Ferritin AST Lactate Dehydrogenase Total Creatine Kinase C-Reactive Protein Albumin Arterial Blood Glucose Arterial Blood Ionized Calcium 03/10/21 03/10/21 03/10/21 09:18 11:03 11:08 Hgb Hct MCV MCH RDW Seg Neuts % (Manual) Lymphocytes % (Manual) Nucleated RBC % Seg Neutrophils # Man Lymphocytes # (Manual) D-Dimer ABG pH POC ABG pCO2 POC ABG pO2 ABG Hemoglobin ABG Oxyhemoglobin ABG Sodium ABG Chloride ABG Glucose Carbon Dioxide BUN Creatinine Glucose POC Glucose 15 L 57 L Lactic Acid Ferritin AST Lactate Dehydrogenase Total Creatine Kinase 225 H C-Reactive Protein Albumin Arterial Blood Glucose Arterial Blood Ionized Calcium 03/10/21 03/10/21 11:29 12:08 Hgb Hct MCV MCH RDW Seg Neuts % (Manual) Lymphocytes % (Manual) Nucleated RBC % Seg Neutrophils # Man Lymphocytes # (Manual) D-Dimer ABG pH POC ABG pCO2 POC ABG pO2 ABG Hemoglobin ABG Oxyhemoglobin ABG Sodium ABG Chloride ABG Glucose Carbon Dioxide BUN Creatinine Glucose POC Glucose 218 H Lactic Acid 17.90 H* Ferritin AST Lactate Dehydrogenase Total Creatine Kinase C-Reactive Protein Albumin Arterial Blood Glucose Arterial Blood Ionized Calcium
[2021-03-10] MEDS ORDERED: SODIUM CHLORIDE 0.9% 1000 ML 2,000 ML IV ONE (12:23)
[2021-03-10] MEDS ORDERED: HEPARIN 5,000 UNIT/1 ML VIAL SUB-Q SCH (14:00)
--- NOTE | 2021-03-10 14:03 | Consultation ---
DATE OF CONSULTATION: 03/10/2021 PULMONARY CRITICAL CARE CONSULTATION NOTE CONSULTING PHYSICIAN: Dr. Rich Cabrera. REASON FOR CONSULTATION: Acute hypoxemic respiratory failure, on mechanical ventilatory support, person under investigation for COVID-19. CHIEF COMPLAINT AND HISTORY OF PRESENT ILLNESS: As follows: The patient is an 85-year-old female brought into the Emergency Room in respiratory distress. She was hypoxemic, O2 sats of 45% on room air when EMS arrived at her house, on 100% nonrebreather, on bag valve mask ventilation and it improved to about 80%. In the emergency room, she was minimally responsive. They mentioned she had, had a sore throat and was diagnosed with upper respiratory tract infection recently. She has not been fully vaccinated against COVID-19. In the emergency room, she was intubated, she was hypotensive. She was started on vasopressors, volume resuscitated and we are asked to assist with management. When I stopped by to see her, she was resting in bed. She was on multiple vasopressors. I believe she was on vasopressin. I had added vasopressin to the mix earlier. Upon receiving the phone call, she was also on Levophed and she had been on, I believe, dopamine also at that time, but remained hypotensive with regards to tobacco use or abuse history that is unknown. The above is as much of the history of presentation as I have. PAST MEDICAL HISTORY: Arthritis, gastroesophageal reflux disease and hypertension. PAST SURGICAL HISTORY: Unknown. MEDICATIONS: She was on at the time I stopped by to see her, according to the medication reconciliation record, included the following: Tylenol 650 mg per rectum q. 6 hours p.r.n. mild pain or fever, azithromycin 500 mg IV daily, Rocephin 2 grams IV daily, dexamethasone 6 mg IV daily, D5W drip with 3 amps of bicarbonate per liter had been ordered to be run that at 100 per hour for 2 liters. She also was on D10 drip at 42 mL per hour. Dopamine was maxed. Levophed was maxed. Vasopressin was maxed. Fentanyl drip was at 1 mcg/kg/hour, but that was on hold, heparin 5000 units subcu q. 8 hours, morphine sulfate 2 mg IV q. 4 hours p.r.n. moderate pain, Zofran 4 mg IV q. 8 hours p.r.n. nausea and vomiting. ALLERGIES: No known drug allergies. DIET: Cachectic looking lady, acute weight loss or gain history is unknown. SOCIAL HISTORY: It seems like she lives in the community. No current alcohol, tobacco or illicit drug use or abuse as far as I can tell. Remote history is unknown. FAMILY HISTORY: Otherwise unknown. REVIEW OF SYSTEMS: Unobtainable secondary to patient's medical and mental condition. Since she has been here, no gross hematochezia or melena, no gross hematuria, no hematemesis, no hemoptysis, no bloody tracheal secretions, no witnessed seizures. Review of systems otherwise unobtainable or as in body of history above. PHYSICAL EXAMINATION: VITAL SIGNS: On presentation, I do not have a temperature. Her pulse is 89, respiratory rate was 22, blood pressure 173/157 initially. O2 sats were 95%, inspired oxygen concentration at that time was not recorded. When I stopped by to see her, her O2 sats were not picking up consistently, very poor waveform. The highest I saw was about 80% that was on assist control mode of ventilation, tidal volume 450, rate of 30 and PEEP of 6 and 50% FIO2. Her pO2; however, was elevated. I believe her pO2 was 378 on 100% FiO2 at that time. GENERAL: Elderly looking, chronically ill-looking lady. Normocephalic, atraumatic, mottling, on the mechanical ventilator, but actually without significant patient-ventilator dyssynchrony. HEAD, EYES, EARS, NOSE, THROAT: Anicteric. No conjunctival erythema. Oropharynx was moist. ET tube was taped at the lips around 23-24 cm. NECK: No gross jugular venous distention. No thyromegaly. Grossly, there were no palpable lymph nodes in the supraclavicular or submandibular lymph node chains. LUNGS: Auscultation of both lung hurt revealed bilateral rales. No wheezing. HEART: Sounds 1 and 2 are heard at the time of my evaluation, regular rate and rhythm without overt rubs or murmurs. ABDOMEN: Soft, flat, bowel sounds are positive, nontender, no palpable hepatosplenomegaly. EXTREMITIES: Without overt digital clubbing or cyanosis. No pedal edema. Pedal pulses are faint, weak. NEUROLOGIC: Pupils are equal, round, about 4 mm, sluggishly reactive to light. Extraocular muscle movements were intact. She appeared to have withdrawal movements to all extremities, but was not following commands. SKIN: Mottled with some early cyanosis in the extremities. Her toes on the right side without overt cellulitis or rash in the areas I examined. Otherwise, please see the wound care nurses' notes for full description of her skin. PSYCHIATRIC: Mood and affect could not be evaluated. She was intubated and sedated. LABORATORY DATA: From my review are as follows: White cell count 10,500; hemoglobin 9.7, hematocrit 29.9, platelet count 261, only 1% band forms on the manual differential. D-dimer was elevated at 1715. Her arterial blood gas initially presentation showed a pH of 7.26, pCO2 of 18, pO2 of 378, that was 100% on the above-mentioned vent settings. Serum sodium was 141, potassium 4.7, chloride 103, bicarbonate 11, BUN 37, creatinine 2.0, glucose 151. Lactic acid level was 9.8, it is now up to 17.9, AST 46. LDH 359. CRP 16.6. Procalcitonin 1.25. Two sets of blood cultures, no growth to date. A CT scan was done of her head at presentation. No acute abnormality. Kidney ultrasound, no obvious hydronephrosis. Chest x-ray, bilateral infiltrates, gross cardiomegaly, significant distention of the stomach. ET tube in good position. No gross pneumothorax. No gross bony fracture. ASSESSMENT: 1. Severe sepsis with shock. 2. Acute hypoxemic respiratory failure. 3. Severe metabolic acidosis. 4. Bilateral pneumonia. 5. Possible developing pulmonary edema. 6. Person under investigation for COVID-19 infection. 7. Acute kidney injury. 8. Cardiomyopathy. 9. Adult failure to thrive. 10. Elevated serum inflammatory markers to include D-dimers, LDH, CRP level. PLAN: Overall, prognosis really is grave in this lady. I have pushed sodium bicarbonate at bedside if she did not improve her blood pressure on the monitor. We will continue to hyperventilate to compensate for the metabolic acidosis. Oxygen will be weaned to keep sats greater than or equal to about 90%. Aspiration precautions will be maintained. We will get repeat ABGs in a few hours, essentially as we were not able to pickle solution maker her O2 sats on the monitor, mostly due to the peripheral vaso restriction, most likely from the vasopressors. Ventilator-associated pneumonia bundle has been introduced. Troponin level is within normal limits thankfully. I agree with empiric community-acquired pneumonia therapy. We will continue systemic steroids. Further interventions with regards to remdesivir, which was probably contraindicated with her renal failure, but also ___ will depend on the results of the coronavirus PCR. For now, we will keep her on contact and airborne isolation. The family has been reached out to really consider end-of-life wishes considering the prognosis at this point in time. Urine output will be monitored and followed. I believe a Nephrology consultation has been placed. Enteral nutrition will be the feeding modality of choice once we can wean down off vasopressors. We will continue the bicarbonate supplementation. Volume resuscitation. Flu and pneumonia vaccination will be addressed per protocol. Vasopressors will be weaned for a target MAP of 65 mmHg. Thank you very much for the consult. We will follow along and make further recommendations as picture progresses/becomes clearer. She is gravely ill, critically ill on life-sustaining interventions including mechanical ventilatory support and vasopressors, at very high risk of from cardiopulmonary system decompensation and renal system. This time was spent about 35-40 minutes of critical care time without overlap and excluding any procedural time that may be necessary. TID: [id number] RECEIPT: [id number] VIOLA/RUTH
[2021-03-10 14:23] VITALS: BP 49/24
--- NOTE | 2021-03-10 15:58 | Event Note ---
Date: 03/10/21 Advance care planning meeting conducted. A prolonged discussion was had with family members. Patient found to be critically ill with multiple organ dysfunction syndrome. Patient found to have septic shock, acute hypoxemic respiratory failure ventilatory support, acute kidney injury, bilateral pneumonia suspected secondary to coronavirus infection. Patient poor prognosis explained. Physical exam findings discussed. On exam: Neurologic exam the patient was found to have absent pupillary reflexes. Patient pupils are fixed and dilated. Patient was found to have absent lung sounds on pulmonary exam. Patient was found to have asystole on secured entrance monitor. Patient family declined further intervention. Patient pronounced at 1545 hrs. Related support provided. 60 minutes critical care time dedicated to bedside patient care. Advanced care planning conducted +30 minutes.
--- NOTE | 2021-03-10 16:07 | Death Note ---
Note Date of : 03/10/21 Time of : 15:45 Time Pronounced: 15:45 - Preliminary Cause of (problem) (1) Septic shock Preliminary cause of (2) Respiratory failure Qualifiers: Chronicity: acute Respiratory failure complication: hypoxia Qualified Code(s): J96.01 - Acute respiratory failure with hypoxia Preliminary cause of (3) Pneumonia Qualifiers: Pneumonia type: due to unspecified organism Laterality: bilateral Lung location: unspecified part of lung Qualified Code(s): J18.9 - Pneumonia, unspecified organism Preliminary cause of (4) Coronavirus infection Preliminary cause of (5) Metabolic acidosis Preliminary cause of
--- NOTE | 2021-03-12 14:13 | Electrocardiograph Report ---
[facility] Test Date: 2021-03-10 Test Time: 04:43:26 Pat Name: IMER SOTELO Department: Room: [place] [address] Gender: F Oxygraph Operator: NORAH : 1935 Requested By: BEAR AVALOS III Order Number: [id number] Reading MD: Eliane Youssef Measurements Intervals [place] Rate: 77 P: -89 [place]: 122 QRS: 41 QRSD: 78 T: 62 QT: 393 QTc: 444 Interpretive Statements Sinus or ectopic atrial rhythm Poor R wave progression No previous ECG available for comparison Electronically Signed On 03-12-2021 14:13:29 EDT by Eliane Youssef
== END 2021-03-10 15:45 | disposition admitted as inpatient to this hospital (09) ==
LOC: ED 01:52 → UNDOADMIN 05:52 → CC1 05:52 → ED 15:45
DX: A41.9 Sepsis, unspecified organism (principal); N19 Unspecified kidney failure; Z20.822 Contact with and (suspected) exposure to COVID-19; I95.9 Hypotension, unspecified; J96.90 Respiratory failure, unspecified, unspecified whether with hypoxia or hypercapnia; J18.9 Pneumonia, unspecified organism; D64.9 Anemia, unspecified; R41.82 Altered mental status, unspecified
CPT/HCPCS: 31500; 36415; 36556; 70450; 71045; 76770; 80053; 82140; 82550; 82553; 82728; 82805; 82962; 83615; 83930; 84145; 84484; 84550; 85007; 85025; 85379; 85610; 85730; 86140; 87040; 93005; 96365; 96366; 96367; 96368; 96375; 99291; 99292; J0456; J0696; J1100; J1265; J7030; U0003; 94002; 94003; 99285